=== PATIENT | male | born 1955 | race Caucasian/White ===

== ENCOUNTER → 2024-07-26 | Outpatient (CLI) | payer MEDICARE, BC, SELFPAY ==
[2024-07-26 08:30] LABS: Basophils % (Auto) 1 % (0-2.5); Eosinophils # (Auto) 0.2 Thou/mm3 (0.0-0.5); Eosinophils % (Auto) 5 % (0-10); Hematocrit 39.4 % (41.0-53.0); Hemoglobin 13.3 g/dL (13.5-16.0); Immature Granulocytes % (Auto) 0 % (0-0); Immature Granulocytes Auto 0.01 Thou/mm3 (0.00-0.00); Lymphocytes # (Auto) 1.3 Thou/mm3 (1.0-4.8); Lymphocytes % (Auto) 35 % (10-50); Mean Corpuscular HGB Conc 33.8 g/dl (31.0-37.0); Mean Corpuscular Hemoglobin 28.7 pg (25.0-35.0); Mean Corpuscular Volume 85 fL (80-100); Monocytes # (Auto) 0.3 Thou/mm3 (0.0-0.8); Monocytes % (Auto) 9 % (0-12); Neutrophils # (Auto) 1.8 Thou/mm3 (1.8-7.7); Neutrophils % (Auto) 50 % (37-80); Nucleated Red Blood Cell % 0 /100 WBC (0); Platelet Count 181 Thou/mm3 (140-440); RDW Standard Deviation 41.6 fL (35.1-43.9); Red Blood Count 4.63 Miln/mm3 (4.50-5.90); White Blood Count 3.7 Thou/mm3 (3.8-10.6)
[2024-07-26 08:55] LABS: Folate 14.43 ng/mL (>5.38); Parathyroid Hormone Intact 75.1 pg/ml (18.5-88.0); Vitamin B12 373 pg/mL (211-911)
[2024-07-26 09:46] LABS: Alanine Aminotransferase 17 U/L (10-49); Albumin, Serum 4.3 gm/dL (3.4-4.8); Albumin/Globulin Ratio 1.9 (1.2-2.2); Alkaline Phosphatase 72 U/L (46-116); Anion Gap 5 (7-16); Aspartate Amino Transferase 19 U/L (0-34); BUN/Creatinine Ratio 16 Ratio (12-20); Bilirubin,Total 0.7 mg/dL (0.3-1.2); Blood Urea Nitrogen 16 mg/dL (9-23); Calcium 10.1 mg/dL (8.3-10.6); Calcium (Corrected) 10.1 mg/dL (8.5-10.1); Carbon Dioxide 30.3 mMol/L (20.0-31.0); Chloride 105 mMol/L (98-107); Globulin 2.3 gm/dL (2.3-3.5); Glucose 111 mg/dL (74-106); Iron 82 mcg/dL (65-175); Osmolality,Calculated 281 (275-295); Potassium 4.8 mMol/L (3.4-5.1); Sodium 140 mMol/L (136-145); Total Protein 6.6 gm/dL (5.7-8.2); eGFR > 60 See Note
[2024-07-26 14:24] LABS: Glucose Estimated Average 114 mg/dL (80-131); Hemoglobin A1C 5.6 % Hgb (4.8-6.0)
[2024-07-26 15:21] LABS: Ferritin 10 ng/mL (10.5-307.3); Total Iron Binding Capacity 359 mcg/dL (250-425)
[2024-07-26 15:29] LABS: Cardiac Risk Estimate 2.6 RATIO (4.0-6.7); Cholesterol 161 mg/dL (132-200); HDL Cholesterol 61 mg/dL (40-60); LDL Cholesterol,Calculated 80 mg/dL (0-130); Triglycerides 101 mg/dL (30-150)
[2024-07-31 06:45] LABS: Vitamin D,1,25 (OH)2,Total 51 pg/mL (18-72); Vitamin D2, 1,25 (OH)2 <8 pg/mL; Vitamin D3, 1,25 (OH)2 51 pg/mL
[2024-08-02 06:36] LABS: Vitamin B1 (Thiamine)* 14 nmol/L (8-30); Vitamin B6, Plasma* 9.2 ng/mL (2.1-21.7)
== END | disposition home or self-care (01) ==
LOC: COPL 08:00
PROVIDERS: PCP Family Medicine; Referring Provider Student in an Organized Health Care Education/Training Program; Visit Provider Student in an Organized Health Care Education/Training Program
DX: E56.9 Vitamin deficiency, unspecified (principal); Z98.84 Bariatric surgery status; E55.9 Vitamin D deficiency, unspecified; R53.81 Other malaise; R53.83 Other fatigue; K76.0 Fatty (change of) liver, not elsewhere classified; E66.01 Morbid (severe) obesity due to excess calories; Z68.41 Body mass index [BMI] 40.0-44.9, adult; K90.829 Short bowel syndrome, unspecified
CPT/HCPCS: 36415; 80053; 80061; 82607; 82652; 82728; 82746; 83036; 83540; 83550; 83970; 84207; 84425; 84443; 85025

== ENCOUNTER → 2024-11-08 | Outpatient (CLI) | payer MEDICARE, BC, SELFPAY ==
--- NOTE | 2024-11-08 09:35 | XR_ITS ---
Examination: PA lateral chest 2 views TECHNIQUE: Upright PA lateral chest 2 views Exam date and time: November 08, 2024 0942 hours Comparison January 13, 2018 INDICATIONS: Shortness of breath beginning one month ago FINDINGS: Normal heart size No pneumonia or pulmonary edema BB densities on the lateral view overlying the anterior chest IMPRESSION: No pneumonia or pulmonary edema
== END | disposition home or self-care (01) ==
LOC: CDIM 09:11
PROVIDERS: PCP Family Medicine; Referring Provider Family Medicine; Visit Provider Family Medicine
DX: R06.02 Shortness of breath (principal)
CPT/HCPCS: 71046

== ENCOUNTER → 2025-07-12 | Outpatient (CLI) | payer MEDICARE, BC, SELFPAY ==
--- NOTE | 2025-07-12 09:40 | XR_ITS ---
EXAMINATION: PA lateral chest 2 views Technique when upright PA lateral chest 2 views Date and time: July 12, 2025, 0947 hours, comparison November 08, 2024 INDICATIONS: Dizziness shortness of breath intermittent 2 weeks FINDINGS: Normal heart size Lungs are clear. Moderate osteopenia IMPRESSION: No active disease
[2025-07-12 10:20] LABS: Basophils # (Auto) 0.0 Thou/mm3 (0.0-0.2); Basophils % (Auto) 1 % (0-2.5); Eosinophils # (Auto) 0.2 Thou/mm3 (0.0-0.5); Eosinophils % (Auto) 5 % (0-10); Hematocrit 42.6 % (41.0-53.0); Hemoglobin 14.6 g/dL (13.5-16.0); Immature Granulocytes Auto 0.01 Thou/mm3 (0.00-0.00); Lymphocytes # (Auto) 1.2 Thou/mm3 (1.0-4.8); Lymphocytes % (Auto) 32 % (10-50); Mean Corpuscular HGB Conc 34.3 g/dl (31.0-37.0); Mean Corpuscular Hemoglobin 31.5 pg (25.0-35.0); Mean Corpuscular Volume 92 fL (80-100); Monocytes # (Auto) 0.3 Thou/mm3 (0.0-0.8); Monocytes % (Auto) 9 % (0-12); Neutrophils # (Auto) 2.1 Thou/mm3 (1.8-7.7); Neutrophils % (Auto) 54 % (37-80); Nucleated Red Blood Cell # 0.00 Thou/mm3 (0.00-0.00); Nucleated Red Blood Cell % 0 /100 WBC (0); Platelet Count 192 Thou/mm3 (140-440); RDW Standard Deviation 41.6 fL (35.1-43.9); Red Blood Count 4.63 Miln/mm3 (4.50-5.90); White Blood Count 3.9 Thou/mm3 (3.8-10.6)
[2025-07-12 10:30] LABS: Glucose Estimated Average 108 mg/dL (80-131); Hemoglobin A1C 5.4 % Hgb (4.8-6.0)
[2025-07-12 10:41] LABS: Alanine Aminotransferase 17 U/L (10-49); Albumin, Serum 4.7 gm/dL (3.4-4.8); Albumin/Globulin Ratio 2.0 (1.2-2.2); Alkaline Phosphatase 69 U/L (46-116); Anion Gap 8 (7-16); Aspartate Amino Transferase 22 U/L (0-34); BUN/Creatinine Ratio 13 Ratio (12-20); Bilirubin,Total 0.9 mg/dL (0.3-1.2); Blood Urea Nitrogen 12 mg/dL (9-23); Calcium 9.5 mg/dL (8.3-10.6); Calcium (Corrected) 9.5 mg/dL (8.5-10.1); Carbon Dioxide 28.0 mMol/L (20.0-31.0); Cardiac Risk Estimate 2.8 RATIO (4.0-6.7); Chloride 106 mMol/L (98-107); Cholesterol 158 mg/dL (132-200); Creatinine (Component) 0.9 mg/dL (0.6-1.3); Globulin 2.3 gm/dL (2.3-3.5); Glucose 112 mg/dL (74-106); HDL Cholesterol 56 mg/dL (40-60); LDL Cholesterol,Calculated 75 mg/dL (0-130); Osmolality,Calculated 283 (275-295); Potassium 4.6 mMol/L (3.4-5.1); Sodium 142 mMol/L (136-145); Thyroid Stimulating Hormone 1.72 uIU/mL (0.55-4.78); Total Protein 7.0 gm/dL (5.7-8.2); Triglycerides 136 mg/dL (30-150); eGFR > 60 See Note
[2025-07-12 10:42] LABS: Folate > 24.00 ng/mL (>5.38); Vitamin B12 > 2000 pg/mL (211-911)
== END | disposition home or self-care (01) ==
LOC: SDIM 09:10 → COPL 09:51
PROVIDERS: PCP Family Medicine; Referring Provider Student in an Organized Health Care Education/Training Program; Visit Provider Student in an Organized Health Care Education/Training Program
DX: R06.02 Shortness of breath (principal); I10 Essential (primary) hypertension; R42 Dizziness and giddiness
CPT/HCPCS: 36415; 71046; 80053; 80061; 82607; 82746; 83036; 84443; 85025